=== PATIENT | male | born 1960 | race Caucasian/White ===

== ENCOUNTER 2019-07-16 18:35 | Inpatient (IN) | payer BC, OTHER ==
[~2019-07-16] VITALS: Ht 182.9 cm; Wt 94.8 kg
--- NOTE | 2019-07-16 18:50 | NUR ---
[facility] CL[facility]IC OF DR HOOK FOR A CARDIAC PROCEDURE TOMORROW. PATIENT A/OX4, BREATHING EVEN AND UNLABORED, NO DISTRESS NOTED. PATIENT CHANGED INTO GOWN, ATTACHED TO THE [employer] PROFESSOR.
[2019-07-16 19:08] LABS: BASOPHILS # (AUTO) 0.1 /CMM (0.0-0.2); BASOPHILS % (AUTO) 0.9 % (0.0-2.0); EOSINOPHILS % (AUTO) 2.3 % (0.0-6.0); HEMATOCRIT 41 % (39-51); HEMOGLOBIN 14.3 g/dL (13.5-17.5); LYMPHOCYTES # (AUTO) 2.6 /CMM (0.8-4.8); MEAN CORPUSCULAR HGB CONC 35 g/dl (31.0-36.0); MEAN CORPUSCULAR VOLUME 85 fL (80-96); MONOCYTES # (AUTO) 0.7 /CMM (0.1-1.30); MONOCYTES % (AUTO) 8.5 % (2.0-12.0); NEUTROPHILS # (AUTO) 4.8 /CMM (1.8-8.9); NEUTROPHILS % (AUTO) 57.3 % (43.0-81.0); PLATELET COUNT (AUTO) 220 /CMM (150-450); RED BLOOD CELL COUNT(AUTO) 4.82 MIL/uL (4.5-6.0); WHITE BLOOD COUNT (AUTO) 8.3 K/uL (4.3-11.0)
[2019-07-16 19:18] LABS: CALCIUM, SERUM 9.4 mg/dL (8.5-10.1); CARBON DIOXIDE 26 mmol/L (21-32); CHLORIDE 105 mmol/L (98-107); CREATININE 1.2 mg/dL (0.6-1.3); GLUCOSE 178 mg/dL (74-106); POTASSIUM 4.5 mmol/L (3.5-5.1); SODIUM SERUM 143 mmol/L (136-145); UREA NITROGEN, BLOOD 19 mg/dL (7-18)
[2019-07-16 19:30] LABS: B-TYPE NATRIURETIC PEPTIDE 1854 PG/ML (0-125)
--- NOTE | 2019-07-16 19:44 | NUR ---
CALLED FOR ICU BED, TURNED IN MOVE SHEET
[2019-07-16] MEDS ORDERED: MAG HYDROX/AL HYDROX/SIMETH 30 ML UDC PO PRN (20:30)
[2019-07-16] MEDS ORDERED: HYDROCODONE/APAP 5/325MG 1 EACH TABLET PO PRN (20:30)
[2019-07-16] MEDS ORDERED: Z GUARD REMEDY 2 OZ OINT TP PRN (20:30)
[2019-07-16] MEDS ORDERED: MAGNESIUM HYDROXIDE 30 ML UDC PO PRN (20:30)
[2019-07-16] MEDS ORDERED: ACETAMINOPHEN 325 MG TABLET PO PRN (20:30)
[2019-07-16] MEDS ORDERED: ONDANSETRON HCL/PF 4 MG/2 ML VIAL IVP PRN (20:30)
--- NOTE | 2019-07-16 22:01 | NUR ---
BED 260
--- NOTE | 2019-07-16 22:25 | NUR ---
REPORT GIVEN TO ROBERT JERRY FOR LISA
--- NOTE | 2019-07-16 22:40 | NUR ---
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 ON ROOM AIR. CLEAR BREATH SOUNDS. BL AC 20 HEPLOCK PATENT. PT DENIES PAIN OR SOB. EDUCATED PT ON PLAN OF CARE. CONTINUE TO MONITOR.
[2019-07-16 22:47] VITALS: BP 147/91
[2019-07-16 23:00] VITALS: BP 146/79
--- NOTE | 2019-07-16 23:00 | NUR ---
ROLL OR TAPE EDGE MACHINE OPERATOR RCD PT FROM ER WITH MULTIPLE PROBLEMS MARKED IN PAST MEDICAL HISTORY; PT DENIES HAVING CANCER, PSYCH ISSUES OR DIABETES PER PT HIS ONLY PMH IS HTN AND KIDNEY STONES. NOTIFIED [facility] ER PER CLARA HE WILL TELL ER CHARGE NURSE.
--- NOTE | 2019-07-16 23:05 | NUR ---
SIGN LETTERER PT CONVERTED TO NSR AT 2305. CONTINUE TO MONITOR.
[2019-07-16] MEDS ORDERED: METO-357 PO (23:32)
[2019-07-17] VITALS (11 sets, daily range): BP systolic 92–143; BP diastolic 49–85
[2019-07-17 04:12] LABS: BASOPHILS % (AUTO) 0.3 % (0.0-2.0); EOSINOPHILS % (AUTO) 3.2 % (0.0-6.0); HEMATOCRIT 35 % (39-51); HEMOGLOBIN 12.4 g/dL (13.5-17.5); LYMPHOCYTES # (AUTO) 2.1 /CMM (0.8-4.8); LYMPHOCYTES % (AUTO) 34.7 % (20.0-44.0); MEAN CORPUSCULAR HGB CONC 36 g/dl (31.0-36.0); MEAN CORPUSCULAR VOLUME 84 fL (80-96); MONOCYTES # (AUTO) 0.7 /CMM (0.1-1.30); MONOCYTES % (AUTO) 10.7 % (2.0-12.0); NEUTROPHILS # (AUTO) 3.1 /CMM (1.8-8.9); NEUTROPHILS % (AUTO) 51.1 % (43.0-81.0); PLATELET COUNT (AUTO) 165 /CMM (150-450); RED BLOOD CELL COUNT(AUTO) 4.11 MIL/uL (4.5-6.0); WHITE BLOOD COUNT (AUTO) 6.1 K/uL (4.3-11.0)
[2019-07-17 04:27] LABS: CALCIUM, SERUM 8.8 mg/dL (8.5-10.1); CREATININE 0.8 mg/dL (0.6-1.3); MAGNESIUM 1.7 mg/dL (1.8-2.4); PHOSPHORUS 4.5 mg/dL (2.5-4.9); POTASSIUM 4.4 mmol/L (3.5-5.1)
--- NOTE | 2019-07-17 07:14 | NUR ---
LIFE SCIENCE TECHNICIAN DR HOOK AT BEDSIDE EVALUATING PT; WALLACE/CARDIOVERSION CANCELED D/T PT CONVERTING TO NSR. NURSING STAFFING BRANCH MANAGER AND SURGERY NOTIFIED.
--- NOTE | 2019-07-17 08:00 | NUR ---
received pt from overnight cashier, a/o x4, SR since 23:00, cardioversion canceled by Dr Carter, RA sat well, BRP, good urine output, no BM, tolerated diet, v/s stable, no pain. pt will be discharged home per
[2019-07-17] MEDS: Magnesium 1GM/D5W 100ML PREMIX 100 ML IV SCH ×2 (08:35→09:13)
[2019-07-17] MEDS ORDERED: RIVAROXABAN 10 MG TABLET PO ONE (09:00)
[2019-07-17] MEDS ORDERED: METOPROLOL SUCCINATE 50 MG TAB.SR.24H PO SCH (09:00)
--- NOTE | 2019-07-17 11:22 | NUR ---
pt discharged home, picked up by his , v/s stable, no pain, discharge instructions given, pt verbalized understanding.
== END 2019-07-17 11:18 | disposition home or self-care (01) | DRG 309 ==
LOC: ER 18:37 → TELE-TD 21:04 → UNDOADMIN 21:04 → ICU 22:14
PROVIDERS: ADMIT Internal Medicine; ATTEND Family Medicine
DX: I48.0 Paroxysmal atrial fibrillation (principal); N17.9 Acute kidney failure, unspecified; I10 Essential (primary) hypertension; E86.0 Dehydration; Z87.442 Personal history of urinary calculi; R73.9 Hyperglycemia, unspecified
CPT/HCPCS: 36415; 71045-TC; 80048-TC; 83735-TC; 83880; 84100-TC; 84484-TC; 85025-TC; 85730-TC; 87081-TC; G0378; J3475